=== PATIENT | male | born 1965 | race Hispanic/Latino ===

== ENCOUNTER → 2018-09-30 | Day surgery (SDC) | payer BC ==
[2018-09-25 13:54] LABS: BASOPHILS # (AUTO) 0.1 (0.0-0.1); BASOPHILS % 0.7 % (0.0-1.0); EOSINOPHILS # (AUTO) 0.2 (0.0-0.4); HEMATOCRIT 38.9 % (38.2-49.6); HEMOGLOBIN 13.2 g/dL (14.0-18.0); LYMPHOCYTES # (AUTO) 2.4 (1.0-3.2); LYMPHOCYTES % 26.5 % (18.0-39.1); MEAN CORPUSCULAR HEMOGLOBIN 29.1 pg (28-32); MEAN CORPUSCULAR HGB CONC 33.9 g/dL (31-35); MEAN CORPUSCULAR VOLUME 85.9 fL (81-99); MONOCYTES # (AUTO) 0.5 (0.2-0.8); MONOCYTES % 5.8 % (4.4-11.3); NEUTROPHILS # (AUTO) 5.8 (2.1-6.9); NEUTROPHILS % 64.4 % (38.7-80.0); PLATELET COUNT 298 x10e3/uL (140-360); RED BLOOD COUNT 4.53 x10e6/uL (4.3-5.7); RED CELL DISTRIBUTION WIDTH 13.6 % (11.7-14.4)
[2018-09-25 14:12] LABS: INR 0.84; PARTIAL THROMBOPLASTIN TIME 26.9 seconds (23.8-35.5)
[2018-09-25 14:15] LABS: ALANINE AMINOTRANSFERASE 19 IU/L (0-55); ALBUMIN 3.7 g/dL (3.5-5.0); ALBUMIN/GLOBULIN RATIO 1.1 (0.8-2.0); ALKALINE PHOSPHATASE 90 IU/L (40-150); ANION GAP 12.2 mmol/L (8-16); BLOOD UREA NITROGEN 11 mg/dL (7-26); BUN/CREATININE RATIO 14 (6-25); CALCIUM 10.1 mg/dL (8.4-10.2); CARBON DIOXIDE 26 mmol/L (22-29); CHLORIDE 105 mmol/L (98-107); CHOL/HDL RATIO 2.9 (3.9-4.7); CHOLESTEROL 126 MD/DL (0-199); CREATININE, SERUM 0.76 mg/dL (0.72-1.25); EST GLOMERULAR FILTRATION RATE > 60 ML/MIN (60-); GLUCOSE 100 mg/dL (74-118); HDL CHOLESTEROL 44 MG/DL (40-60); LDL CHOLESTEROL 64 MG/DL (60-130); POTASSIUM 4.2 mmol/L (3.5-5.1); SODIUM 139 mmol/L (136-145); TRIGLYCERIDES 92 MG/DL (0-149)
[2018-09-25 14:34] LABS: THYROID STIMULATING HORMONE 0.912 uIU/mL (0.350-4.940)
[~2018-09-30] VITALS: Ht 167.6 cm; Wt 87.1 kg
[2018-09-30] VITALS (8 sets, daily range): BP systolic 131–174; BP diastolic 56–85
[~2018-09-30] MED LIST: ASPIRIN325 MG PO; ASPIRIN81 MG PO; ATORVASTATIN CA10 MG PO; CLOPIDOGREL75 MG PO; CRESTOR10 MG PO; FENTANYL CITRATE/PF 100MCG/2 ML INJ ONE; GLIPIZIDE ER5 MG PO; HEPARIN SOD/SOD CHLORIDE 2,000 ML ONE; IOPAMIDOL 370 MG/ML 200 ML INFUS..BTL INJ ONE; LEVAQUIN500 MG PO; LIDOCAINE HCL 2% LOCAL 20 ML VIAL ONE; LOSARTAN POTAS100 MG PO; METFORMIN HCL500 M2 PO; MIDAZOLAM HCL 2 MG/2 ML VIAL ONE; SODIUM CHLORIDE 0.9% 1000ML 1,000 ML ONE
--- OUTSIDE RECORDS SUMMARY | 2018-09-30 07:39 | XMS REPORT | Clinical Summary ---
Author Author HANNA [employer] [facility] Address Unknown Phone Unavailable Care Team Providers Care Client Application Support Engineer Name Role Phone Scotty Jeffrey Shavonne PCP Allergies No Known Allergies Medications Not on file Active Problems Not on file Encounters Care Team Description Date Type Specialty Aleah Noriega MD Cerebrovascular accident (CVA), unspecified mechanism (HCC) (Primary Dx); Hypertension, unspecified type 07/19/2018 Emergency Emergency Medicine 07/19/2018 Orders Only General Internal Medicine after 09/29/2017 Social History Date Tobacco Use Types Packs/Day Years Used Never Assessed Sex Assigned at Date Recorded Not on file Industry Job Start Date Occupation Not on file Not on file Not on file Travel End Travel History Travel Start No recent travel history available. Last Filed Vital Signs Time Taken Vital Sign Reading 07/19/2018 4:00 PM CDT Blood Pressure 123/69 07/19/2018 4:00 PM CDT Pulse 61 07/19/2018 1:54 PM CDT Temperature 36.4 C (97.6 F) 07/19/2018 4:00 PM CDT Respiratory Rate 16 07/19/2018 4:00 PM CDT Oxygen Saturation 96% - Inhaled Oxygen - Concentration 07/19/2018 1:54 PM CDT Weight 90.7 kg (200 lb) 07/19/2018 1:54 PM CDT Height 167.6 cm (5' 6") 07/19/2018 1:54 PM CDT Body Mass Index 32.28 Plan of Treatment Not on file Procedures Comments Procedure Name Priority Date/Time Associated Diagnosis REPORT OF PROCEDURE - 07/20/2018 ENDOSCOPY SCAN 3:[address] BRAIN WITHOUT IV STAT 07/19/2018 CONTRAST 2:45 PM CDT CBC W/PLT COUNT & AUTO STAT 07/19/2018 DIFFERENTIAL 2:25 PM CDT PT/APTT STAT 07/19/2018 2:25 PM CDT CBC W/PLT COUNT & AUTO STAT 07/19/2018 DIFFERENTIAL 2:25 PM CDT TROPONIN I STAT 07/19/2018 2:25 PM CDT MAGNESIUM STAT 07/19/2018 2:25 PM CDT BASIC METABOLIC PANEL (7) STAT 07/19/2018 2:25 PM CDT XR CHEST 1 VIEW STAT 07/19/2018 PORTABLE/BEDSIDE 2:20 PM CDT ECG 12-LEAD Routine 07/19/2018 2:19 PM CDT Procedure Note - Interface, External Ris In - 07/19/2018 2:25 PM CDT Ventricula r Rate 74 BPM Atrial Rate 74 BPM P-R Interval 160 ms QRS Duration 66 ms Q-T Interval 356 ms QTC Calculatio n(Bazett) 395 ms R [place] 14 degrees T [place] 30 degrees Normal sinus rhythm Normal ECG No previous ECGs available ECG 12-LEAD STAT 07/19/2018 2:19 PM CDT ED ECG INTERPRETATION Routine 07/19/2018 1:58 PM CDT after 09/29/2017 Results * EKG-SCANNED (07/20/2018 3:03 PM CDT) Narrative Performed At * CT brain without IV contrast (07/19/2018 2:45 PM CDT) Specimen Narrative Performed At FINAL REPORT [employer] [facility] CT head without contrast. Reason for exam: Focal neuro deficit, new, fixed or worsening, >6 hours CEREBROVASCULAR ACCIDENT Comparisons: No priors Discussion: Multiple axial CT images of the head are provided without contrast evaluated in brain and bone windows. This exam was performed according to our departmental dose optimization program which includes automated exposure control, adjustment of the mA and/or kV according to patient's size and/or use of iterative reconstructive technique. A 1 cm lucency in the anterior left thalamus probably involving the internal capsule is likely ischemic in etiology, possibly acute. Curran-white differentiation is otherwise maintained. Brain volume is age appropriate. There is no CT evidence of intracranial hemorrhage, mass-effect, hydrocephalus, shift, or extra-axial collections. The visualized orbital contents, bones and surrounding soft tissues are unremarkable. There is mucosal thickening in the ethmoid and sphenoid sinuses. Tympanomastoid cavities are clear. Impressions: Small lucency in the left thalamocapsular region is likely ischemic in etiology, probably acute. Consider MRI correlation if clinically appropriate. Signed: Sandee Alejandro MD Report Verified Date/Time:07/19/2018 15:12:25 Reading Location: [address] Neuro Reading Room Procedure Note Interface, External Ris In - 07/19/2018 3:14 PM CDT FINAL REPORT CT head without contrast. Reason for exam: Focal neuro deficit, new, fixed or worsening, >6 hours CEREBROVASCULAR ACCIDENT Comparisons: No priors Discussion: Multiple axial CT images of the head are provided without contrast evaluated in brain and bone windows. This exam was performed according to our departmental dose optimization program which includes automated exposure control, adjustment of the mA and/or kV according to patient's size and/or use of iterative reconstructive technique. A 1 cm lucency in the anterior left thalamus probably involving the internal capsule is likely ischemic in etiology, possibly acute. Curran-white differentiation is otherwise maintained. Brain volume is age appropriate. There is no CT evidence of intracranial hemorrhage, mass-effect, hydrocephalus, shift, or extra-axial collections. The visualized orbital contents, bones and surrounding soft tissues are unremarkable. There is mucosal thickening in the ethmoid and sphenoid sinuses. Tympanomastoid cavities are clear. Impressions: Small lucency in the left thalamocapsular region is likely ischemic in etiology, probably acute. Consider MRI correlation if clinically appropriate. Signed: Sandee Alejandro MD Report Verified Date/Time: 07/19/2018 15:12:25 Reading Location: [address] Neuro Reading Room Performing Organization Address City/State/Zipcode Phone Number [facility] * PT/PTT (07/19/2018 2:25 PM CDT) Protime 13.6 11.7 - 14.7 seconds [facility] INR 1.0 <=5.9 [facility] PTT 26.3 22.5 - 36.0 seconds [facility] Specimen Blood Narrative Performed At RECOMMENDED COUMADIN/WARFARIN INR THERAPY RANGES [facility] STANDARD DOSE: 2.0 - 3.0 Includes: PROPHYLAXIS for venous thrombosis, [facility] systemic embolization; TREATMENT for venous thrombosis and/or pulmonary embolus. HIGH RISK: Target INR is 2.5-3.5 for patients with mechanical heart valves. Performing Organization Address City/State/Zipcode Phone Number [facility] [address] [place] [address] [facility] * CBC with platelet count + automated diff (07/19/2018 2:25 PM CDT) WBC 9.0 3.5 - 10.5 K/L [facility] RBC 4.94 4.63 - 6.08 M/L [facility] Hemoglobin 14.2 13.7 - 17.5 GM/DL [facility] Hematocrit 43.5 40.1 - 51.0 % [facility] MCV 88.1 79.0 - 92.2 fL [facility] MCH 28.7 25.7 - 32.2 pg [facility] MCHC 32.6 32.3 - 36.5 GM/DL [facility] RDW 13.2 11.6 - 14.4 % [facility] Platelets 271 150 - 450 K/CU MM [facility] MPV 10.5 9.4 - 12.4 fL [facility] nRBC 0 0 - 0 /100 WBC [facility] % Neutros 63 % [facility] % Lymphs 28 % [facility] % Monos 6 % [facility] % Eos 3 % [facility] % Baso 1 % [facility] # Neutros 5.66 (H) 1.78 - 5.38 K/L [facility] # Lymphs 2.47 1.32 - 3.57 K/L [facility] # Monos 0.53 0.30 - 0.82 K/L [facility] # Eos 0.26 0.04 - 0.54 K/L [facility] # Baso 0.05 0.01 - 0.08 K/L [facility] Immature 0 0 - 1 % [facility] Granulocytes-[facility] Specimen Blood Performing Organization Address City/[facility] [place] [address] [phone] [place] [address] * Troponin I (07/19/2018 2:25 PM CDT) Troponin I <0.01 0.00 - 0.03 ng/mL [facility] Specimen Blood Narrative Performed At Troponin I (TnI) levels must be interpreted in the context of the presenting [facility] symptoms and the clinical findings. Elevated TnI levels indicate myocardial [facility] damage, but are not specific for ischemic heart disease. Elevated TnI levels are seen in patients with other cardiac conditions (including myocarditis and congestive heart failure), and slight TnI elevations occur in patients with other conditions, including sepsis, renal failure, acidosis, acute neurological disease, and persistent tachyarrhythmia. Performing Organization Address City/State/Zipcode Phone Number [address] [address] [facility] * Magnesium (07/19/2018 2:25 PM CDT) Magnesium 2.0 1.6 - 2.6 mg/dL [facility] Specimen Blood Performing Organization Address City/State/Zipcode Phone Number [facility] [address] [place] [address] [facility] * Basic Metabolic Panel (07/19/2018 2:25 PM CDT) Sodium 138 136 - 145 meq/L [facility] Potassium 4.2 3.5 - 5.1 meq/L [facility] Chloride 105 98 - 107 meq/L [facility] CO2 26 22 - 29 meq/L [facility] BUN 15 7 - 21 mg/dL [facility] Creatinine 0.78 0.57 - 1.25 mg/dL [facility] Glucose 167 (H) 70 - 105 mg/dL [facility] Calcium 9.9 8.4 - 10.2 mg/dL [facility] EGFR Comment: INSUFFICIENT CLINICAL mL/min/1.73 sq m [facility] DATA TO CALCULATE ESTIMATED [facility] GFR. Specimen Blood Performing Organization Address City/State/Zipcode Phone Number [facility] [address], [place] [id number] [facility] * XR chest 1 view portable / bedside (07/19/2018 2:20 PM CDT) Specimen Narrative Performed At FINAL REPORT [facility] AP view of the chest dated 07/19/2018 CLINICAL INFORMATION: CEREBROVASCULAR ACCIDENT Comment:Heart is normal in size. Pulmonary vasculature is unremarkable. Lungs are clear. No pulmonary infiltrate or pleural effusion is present. Impression:No active cardiopulmonary disease. Signed: Luciana Smith MD Report Verified Date/Time:07/19/2018 14:36:34 Reading Location: [facility] B1 C013X Ortho Consult Reading Room Procedure Note Interface, External Ris In - 07/19/2018 2:38 PM CDT FINAL REPORT AP view of the chest dated 07/19/2018 CLINICAL INFORMATION: CEREBROVASCULAR ACCIDENT Comment: Heart is normal in size. Pulmonary vasculature is unremarkable. Lungs are clear. No pulmonary infiltrate or pleural effusion is present. Impression: No active cardiopulmonary disease. Signed: Luciana Smith MD Report Verified Date/Time: 07/19/2018 14:36:34 Reading Location: [facility] [id number] Ortho Consult Reading Room Performing Organization Address City/State/[facility] Phone Number [facility] * ECG 12 lead (07/19/2018 2:19 PM CDT) Specimen Narrative Performed At Ventricular Rate 74 BPM GE MUSE Atrial Rate 74 BPM P-R Interval 160 ms QRS Duration 66 ms Q-T Interval 356 ms QTC Calculation(Bazett) 395 ms R [place] 14 degrees T [place] 30 degrees Normal sinus rhythm Normal ECG No previous ECGs available Confirmed by Sin MONTALVO MICHAEL ([id number]) on 07/20/2018 7:36:29 AM Procedure Note Interface, External Ris In - 07/20/2018 7:36 AM CDT Ventricular Rate 74 BPM Atrial Rate 74 BPM P-R Interval 160 ms QRS Duration 66 ms Q-T Interval 356 ms QTC Calculation(Bazett) 395 ms R [place] 14 degrees T [place] 30 degrees Normal sinus rhythm Normal ECG No previous ECGs available Confirmed by Sin MONTALVO MICHAEL ([id number]) on 07/20/2018 7:36:29 AM Performing Organization Address City/[facility] Phone Number GE MUSE * ECG/EKG Interpretation (07/19/2018 1:58 PM CDT) Narrative Performed At Aleah Noriega MD 07/19/2018 10:15 PM ECG/EKG Interpretation Date/Time: 07/19/2018 2:28 PM Performed by: Aleah Noriega MD Authorized by: Aleah Noriega MD The ECG was interpreted by ED physician. This ECG was not compared with previous ECG(s).The ECG is interpreted as sinus rhythm. Rate is normal rate. Conduction: conduction normal. ST segments normal. T waves normal. [place] is normal. Other findings: no other findings. Clinical Impression: normal ECG after 09/29/2017 Insurance Payer Benefit Subscriber ID Type Phone Address Plan / Group [employer]UE [employer] BCBS PPO xxxxxxxxxxxx PPO [phone] [address] [place] [address] CHOICE
--- NOTE | 2018-09-30 10:26 | NUR ---
1026 Received pt in Rm #[id number] Report hand off Artis Neal Identiferx2. Carotid angio Dr Vargas [facility] Rx only. Findings Bovine arch. at bedside Shikha Dr Vargas spoke with family. Back to baseline orientation.. Abdomen soft and non tender denies necessity to defecate or POC discussed with family and pt. Aware of importance f/o care 2wks. Rt groin Vascade site w/o s/s hematoma or oozing. No gross issues pain, pallor, pressure or dysrhythmia. Left iv infusing at 100cc/hr via iv dial a flow. Site w/o s/s infiltration. Bilateral pulses present PT/Dp palpable. Remains flat till 1315pm. May be dc then. FAmily has copies of POC Tolerated po intake w/o N/V. ds/rn
--- NOTE | 2018-09-30 12:00 | NUR ---
bedside report received from Mary Ellen Evans RN. Alert oriented and appropriate, PERRLA, respirations even and unlabored to room air. Pulses x4 extremities equal and strong. right femoral dressing CDI, no gross issues or evidence of hematoma. Cap fill brisk < 3 sec. Skin warm and dry integrity appears intact. IV 20g to left shine. presents healthy w/o s/s of infiltration or complaint. Abdomen soft and supple. pt offered toileting, denies need to urinate or defecate. personal affects with patient. Family at bedside. Pt and family verbalizes understanding of POC. Bedside monitoring in use. Currently w/o complaint of pain or need. call light within reach, bed low and [place] [place]
--- NOTE | 2018-09-30 12:00 | NUR ---
1200n Report handoff to Herve MARTINES Rt vascade site remain stable. No signs of oozing or hematoma Iv disconnect due to pt c/o tenderness Does have adequate blood return w/o visual s/s infiltration Monitor and vs remain stable for dc at 115pm aware of importance to keep rt leg straight. Family has copies of POC and aware of importance of f/o 2wks Dr Vargas office. ds/rn
--- NOTE | 2018-09-30 22:02 | Operative Report ---
DATE OF PROCEDURE: 09/30/2018 SURGEON: Nitish Hemphill MD PROCEDURE INDICATION: Stroke and carotid stenosis by noninvasive studies. PROCEDURES PERFORMED: 1. Aortic arch aortography. 2. Carotid extracranial angiography, selective and bilateral. 3. Nonselective extracranial vertebral artery angiography. 4. 6-Dutch Angio-Seal closure to the right common femoral artery. PROCEDURE COMPLICATIONS: None. ESTIMATED BLOOD LOSS: 1. Less than 15 mL. PROCEDURE SUMMARY: After consent was obtained, the patient was prepped and draped in a sterile fashion. An access was obtained with micropuncture kit and a short 6-Dutch sheath was placed to the right common femoral artery. The arteriotomy was closed at the end of the procedure with a 6-Dutch Angio-Seal after adequate anatomy was confirmed for closure. A pigtail 6-Dutch catheter was used for aortic arch aortography with digital subtraction angiography. Nonselective vertebral artery angiography of the extracranial portions bilaterally was performed. Additionally, the CHEY and selectively the common carotid, right and the left subclavian artery were engaged for selective extracranial angiography of the respective carotid arteries. The following findings were noted: 1. Aortic arch is type 1 and bovine with the innominate artery giving rise to the right subclavian, right common carotid, and left common carotid arteries. The left subclavian artery arises from a separate ostium from the aortic arch. 2. Luminal irregularities are noted in the innominate artery, the right subclavian artery, the right common carotid artery and right carotid bulb, right internal carotid artery, right external carotid artery, left common carotid artery and left carotid bulb, left external carotid artery, left subclavian artery and vertebral arteries. 3. Left internal carotid artery has ostial 50% stenosis. There is no evidence of ulceration or thrombus in this stenosis. 4. Vertebral flow is antegrade bilaterally. CONCLUSION: Moderate left internal carotid artery stenosis with no angiographic high risk features observed. RECOMMENDATIONS: Given findings, medical aggressive optimization for management of carotid artery disease is advised. At this point, revascularization for the left carotid artery is not recommended. Suspect etiology for stroke, likely hypertensive given location of thalamocapsular area and in light of findings less likely embolic. Nitish Hemphill MD AFV/MODL /[id number]
== END | disposition home or self-care (01) ==
LOC: CATH LAB 07:21
PROVIDERS: ATTEND Internal Medicine Cardiovascular Disease
DX: I65.22 Occlusion and stenosis of left carotid artery (principal); E11.8 Type 2 diabetes mellitus with unspecified complications; Z01.810 Encounter for preprocedural cardiovascular examination; Z01.812 Encounter for preprocedural laboratory examination; Z79.82 Long term (current) use of aspirin; Z79.84 Long term (current) use of oral hypoglycemic drugs
CPT/HCPCS: 36222; 36225; 36415; 80053; 80061; 83036; 84443; 85025; 85610; 85730; 93005; C1769; J2001; J2250; J7030; Q9967; 36221

== ENCOUNTER 2021-10-12 18:29 | Emergency (ER) | payer BC, MEDICARE ==
[~2021-10-12] VITALS: Ht 167.6 cm; Wt 87.1 kg
[~2021-10-12 18:29] MED LIST changes: -FENTANYL CITRATE/PF 100MCG/2 ML INJ ONE; -HEPARIN SOD/SOD CHLORIDE 2,000 ML ONE; -IOPAMIDOL 370 MG/ML 200 ML INFUS..BTL INJ ONE; -LIDOCAINE HCL 2% LOCAL 20 ML VIAL ONE; -MIDAZOLAM HCL 2 MG/2 ML VIAL ONE; -SODIUM CHLORIDE 0.9% 1000ML 1,000 ML ONE
[2021-10-12] MEDS ORDERED: HYDROCODONE/APAP 5MG-325MG TAB PO PRN (19:15)
[2021-10-12] MEDS ORDERED: SODIUM CHLORIDE 0.9% 1000ML 1,000 ML IV ONE (19:30)
[2021-10-12 19:43] LABS: BASOPHILS # (AUTO) 0.1 (0.0-0.1); BASOPHILS % 0.5 % (0.0-1.0); EOSINOPHILS % 0.3 % (0.0-6.0); HEMATOCRIT 37.5 % (38.2-49.6); LYMPHOCYTES # (AUTO) 2.3 (1.0-3.2); LYMPHOCYTES % 16.5 % (18.0-39.1); MEAN CORPUSCULAR VOLUME 90.6 fL (81-99); NEUTROPHILS # (AUTO) 10.5 (2.1-6.9); NEUTROPHILS % 75.1 % (38.7-80.0); PLATELET COUNT 254 x10e3/uL (140-360); RED BLOOD COUNT 4.14 x10e6/uL (4.3-5.7); RED CELL DISTRIBUTION WIDTH 13.9 % (11.7-14.4)
[2021-10-12 20:08] LABS: ALBUMIN 3.4 g/dL (3.5-5.0); ALBUMIN/GLOBULIN RATIO 0.9 (0.8-2.0); ANION GAP 15.7 mmol/L (8-16); CALCIUM 9.7 mg/dL (8.4-10.2); CREATININE, SERUM 0.81 mg/dL (0.72-1.25); POTASSIUM 3.7 mmol/L (3.5-5.1)
[2021-10-12 20:12] LABS: CLARITY,URINE CLEAR (CLEAR); COLOR,URINE YELLOW (YELLOW); KETONES,URINE NEGATIVE (NEGATIVE); LEUKOCYTE ESTERASE ,URINE TRACE (NEGATIVE); NITRITE,URINE NEGATIVE (NEGATIVE); PROTEIN,URINE DIPSTICK 2+ (NEGATIVE); URINE UROBILINOGEN 0.2 mg/dL (0.2 - 1)
[2021-10-12 20:19] LABS: BACTERIA,URINE RARE /HPF; EPITHELIAL CELLS,URINE RARE /LPF; RBC,URINE 0-5 /HPF (0-5)
[2021-10-12 20:20] LABS: MUCUS,URINE FEW (RARE)
[2021-10-12] MEDS ORDERED: IOPAMIDOL 370 MG/ML 100 ML INFUS..BTL INJ ONE (20:31)
[2021-10-12 23:14] VITALS: BP 121/75
== END 2021-10-12 23:10 | disposition home or self-care (01) ==
LOC: ER 19:00
DX: N50.812 Left testicular pain (principal); N45.1 Epididymitis; R50.9 Fever, unspecified; E11.9 Type 2 diabetes mellitus without complications; Z86.73 Personal history of transient ischemic attack (TIA), and cerebral infarction without residual deficits
CPT/HCPCS: 36415; 74177; 76870; 80053; 81001; 83605; 85025; 87040; 93976; 99284; J0696; J7030; Q9967